=== PATIENT | male | born 1980 | race American Indian/Alaskan Native ===

== ENCOUNTER 2017-08-03 13:09 | Outpatient (CLI) | payer OTHER ==
--- NOTE | 2017-08-05 08:44 | Magnetic Resonance Report ---
MR LOWER EXTREMITY JOINT RIGHT WITHOUT CONTRAST HISTORY: Mass in right ankle. TECHNIQUE: Multisequence, multiplanar MRI through the right ankle and foot without contrast. Fat suppression technique was utilized. COMPARISON: None. FINDINGS: A 1.4 x 0.8 x 1.7 cm well defined masslike lesion is identified in the posterior subcutaneous tissues. This mass appears to be just posterior to the lateral surface of the Achilles tendon. No involvement of the Achilles tendon is suspected. This appears to represent a sebaceous cyst or epidermal inclusion cyst. It has a benign appearance on noncontrast MRI. No other ankle mass is identified. There is normal bone marrow signal throughout the visualized ankle and foot. 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 No evidence for fracture, erosive joint pathology or bone lesion. The musculotendinous structures are within normal limits. No evidence for tendinitis or tenosynovitis. No ligamentous injury is appreciated. No joint effusion. IMPRESSION: Sebaceous cyst versus epidermal inclusion cyst in the posterior soft tissues of the right ankle as described.
== END 2017-08-03 13:10 | disposition home or self-care (01) ==
LOC: MRI 13:09
PROVIDERS: ATTEND Internal Medicine
DX: R22.42 Localized swelling, mass and lump, left lower limb (principal); J45.909 Unspecified asthma, uncomplicated; I10 Essential (primary) hypertension; E78.5 Hyperlipidemia, unspecified
CPT/HCPCS: 73721